=== PATIENT | female | born 1955 | race Caucasian/White ===

== ENCOUNTER 2023-03-30 09:53 | Day surgery (SDC) | payer BC, SELFPAY ==
[2023-03-30] VITALS (26 sets, daily range): BP systolic 110–154; BP diastolic 53–85; PULSE 55–72; RESP 14–23; TEMP 35.7–37.2; O2SAT 93–100; BMI 32.4
[2023-03-30] MEDS: LACTATED RINGERS 1000 ML 1,000 ML 100 ML IV (09:45)
[2023-03-30] MEDS: CELECOXIB 200 MG CAPSULE PO ×2 (10:00→21:15)
[2023-03-30] MEDS: OXYCODONE (CR) 10 MG TAB.ER.12H PO (10:05)
[2023-03-30] MEDS: ACETAMINOPHEN 500 MG TABLET 1000 MG PO ×2 (10:05→17:48)
--- NOTE | 2023-03-30 11:03 | CRLHL7_ITS ---
For Patients: As a result of the Cures Act, medical imaging exams and procedure reports are released immediately into your electronic medical record. You may view this report before your referring provider. If you have questions, please contact your health care provider. Indication: Postop Technique: Two views left knee Findings/Impression: Hardware from a left total knee arthroplasty is in satisfactory position. Bone alignment is normal. No sign of acute fracture. Postop changes are within normal limits. Dictated by Timoteo Mark MD @ 03/30/2023 3:57:08 PM (Electronically Signed)
--- NOTE | 2023-03-30 11:19 | SUR.PREOP ---
TIME?OUT:?1130 PT/RN/MDA?VERIFICATION?OF?SURGICAL?SITE,?PROCEDURE,?AND?CONSENT OBTAINED?PRIOR?TO?INVASIVE?PROCEDURE.
[2023-03-30] MEDS: fentaNYL 100 MCG/2 ML inj IVP (12:05)
[2023-03-30] MEDS: MIDAZOLAM HCL 1 MG/ML inj IVP (12:05)
--- NOTE | 2023-03-30 12:17 | W.PM.NB ---
Nerve Block Nerve Block Time Seen by Provider: 12:13 Date Seen: 03/30/23 Type of block requested by surgeon for post-operative analgesia: adductor canal Side: left Time out performed: Yes Verification of patient name: Yes Verification of date of : Yes Site marking: site marked Name of person performing procedure: Martinez Continuous monitoring Was continuous monitoring of O2 sat, B/P, lunchroom monitor, recorded every 15 minutes?: Yes Procedure Checklist: sterile prep, needles and gloves Ultrasound guided. Images saved: Yes Medications given in 5ml increments after negative aspiration: Ropivicaine %: 0.5 mL: 20 Needle gauge: 20 Decadron (mg): 10 Precedex (mcg): 25 Patient tolerated procedure well: Yes Additional comments: Needle noted adjacent to nerve Block Charges Block Charge (with Pro Fee): Femoral Nerve Use of Ultrasound Machine for Block: Yes- US Guidance/pain block
--- NOTE | 2023-03-30 12:18 | P.NB_ITS ---
Nerve Block Nerve Block Time Seen by Provider: 12:13 Date Seen: 03/30/23 Type of block requested by surgeon for post-operative analgesia: geniculars Side: left Time out performed: Yes Verification of patient name: Yes Verification of date of : Yes Site marking: site marked Name of person performing procedure: Martinez Continuous monitoring Was continuous monitoring of O2 sat, B/P, groundwater monitoring technician, recorded every 15 minutes?: Yes Procedure Checklist: sterile prep, needles and gloves Medications given in 5ml increments after negative aspiration: Ropivicaine %: 0.5 mL: 9 Needle gauge: 25 Patient tolerated procedure well: Yes Block Charges Block Charge (with Pro Fee): Genicular Nerve Block Use of Ultrasound Machine for Block: No
--- NOTE | 2023-03-30 12:18 | W.ANESCHARGE ---
Anesthesia Charges Start Date/Time Anesthesia Start Date: 03/30/23 Anesthesia Start Time: 12:32 Stop Date/Time Anesthesia Stop Date: 03/30/23 Anesthesia Stop Time: 15:13
[2023-03-30] MEDS: CEFAZOLIN 2 GM in 0.9 % SODIUM CHLORIDE Mini-bag 100 ML IVPB ×2 (12:50→18:28)
[2023-03-30] MEDS: TRANEXAMIC ACID 100 MG/ML INJ 1000 MG IV (12:50)
--- NOTE | 2023-03-30 14:14 | P.ORPRC_ITS ---
Procedure Note Date of procedure: 03/30/23 Procedure: PREOPERATIVE DIAGNOSIS: 1. Left knee osteoarthritis, primary, severe POSTOPERATIVE DIAGNOSIS: 1. Left knee osteoarthritis, primary, severe PROCEDURE: 1. Left total knee arthroplasty SURGEON: Adama Boyer MD. HOME IMPROVEMENT CONTRACTOR: Quentin Tapia PA-C - Of note, a skilled educational/development assistant was critical for this case to aid in patient positioning, tissue retraction, limb manipulation/positioning, and closure. ANESTHESIA: Spinal anesthetic EBL: 50ml IMPLANTS: DePuy J&J all cemented TKA - Attune PS femur size 7, size 6 tibia, 5 poly spacer, 35 mm patella TOURNIQUET: 90 min at 300 torr COMPLICATIONS: None evident INDICATIONS: The patient is a pleasant 67-year-old female who has experienced severe left knee pain and difficulty bearing weight. Workup included x-rays which revealed severe osteoarthrosis in the knee. Given the deformity, the dysfunction, and the pain, as well as the failure of nonoperative management, recommendation was made for surgery. FINDINGS: Full-thickness cartilage loss broadly through the medial and patellofemoral compartments. To a lesser degree lateral compartment. Moderate effusion upon entering the joint. Multiple osteophytes diffusely throughout the knee. DESCRIPTION OF PROCEDURE: Following a thorough discussion of risks, benefits, and alternatives consent was obtained and the left knee was marked. The patient was brought to the operating room and placed supine on the operating table. Induction of anesthesia was undertaken. 2 g IV Ancef and 1 g tranexamic acid was administered within 1 hr of incision preoperatively. Proper time-out was performed identifying proper patient, site, procedure. The operative extremity was prepped and draped in the appropriate sterile fashion using ChloraPrep after the patient was positioned supine with all bony prominences well padded. A longitudinal, anterior, midline skin incision was made starting approximately 3cm proximal to the superior pole of the patella and advanced distal to the tibial tubercle. A median parapatellar arthrotomy was created. A medial subperiosteal sleeve was created with knife, kelley elevator and curved osteotome. The retropatellar fatpad was resected and the synovium in the suprapatellar pouch excised to visualize the anterior femoral cortex. Femoral preparation was performed via an intramedullary guide. Step drill allowed access into the femoral canal. The distal cutting guide was placed with 5? of valgus and 11 mm cut on the distal femur due to a mild flexion contracture. Femur was sized using a posterior referencing guide in 3? of external rotation. This found have a best fit with the sizing noted above. The 4 in 1 cutting block was then placed, and the distal femur shaped accordingly. The box cut was then created and the trial implant inserted to confirm appropriate fit. We turned our attention to the proximal tibia. Extramedullary guide was utilized for cutting with the goal of being 90 degree cut from the mechanical axis of the tibia in the varus/valgus plane utilizing tibial crest as the primary alignment. Initially a 2 mm resection was performed from the medial tibial plateau. An additional 4 mm to require resection. Ultimately, balancing was achieved in both flexion and extension in both varus and valgus. The knee was able to achieve full extension as well comfortably. The patella was initially measured and found have a thickness of 22 mm. It was resected back to approximately 14.5 mm. It was sized to be a best fit with as noted above. This was drilled, trial placed. All trials were placed and found to have an excellent stability and balance. At this stage, trial implants were removed, the knee was thoroughly irrigated with normal saline, and the cement was mixed. After irrigation, the knee was thoroughly dried, and cement placed, with the real tibial and femoral implants placed along with the patella. Trial poly spacer was placed and confirmed to have excellent range of motion and full extension, and the real poly spacer opened and inserted. All extra cement was removed, and a 3 min Betadine soak performed. Finally, a final irrigation round with normal saline was performed. Closure performed with 0 PDS and #0 Stratafix for the quad tendon/retinaculum. 2-0 Vicryl/Stratafix for the subcutaneous and 4-0 Monocryl for subcuticular closure. Dressings were applied and the patient was awoken from anesthesia after the tourniquet deflated and transferred the PACU in stable condition. A skilled educational/development assistant was critical for this case to aid in patient positioning, tissue retraction, bone exposure, limb manipulation/positioning, patient safety, and closure. PLAN: 1. Weight bear as tolerated operative extremity. 2. 23 hr perioperative antibiotics. 3. Ice. 4. PT/OT consults for ambulation assistance/mobility education. 5. Social work consult for discharge planning. 6. DVT prophylaxis with at SCDs, Freddy Hose, and aspirin twice daily.
--- NOTE | 2023-03-30 15:18 | W.ANESCHARGE ---
Anesthesia Charges Start Date/Time Anesthesia Start Date: 03/30/23 Anesthesia Start Time: 12:32 Stop Date/Time Anesthesia Stop Date: 03/30/23 Anesthesia Stop Time: 15:13
--- NOTE | 2023-03-30 16:04 | SUR.PHASEI ---
patient met discharge criteria per anesthesia
--- NOTE | 2023-03-30 16:43 | P.IMCN_ITS ---
Date of Consult Patient: Javier Patient Consult date: 03/30/23 Primary Care Provider: Gustavo Mota MD Consult Narrative Reason for consult: Medical management of comorbidities Narrative: Shona Henriquez is a 67 year old female who presented to the hospital today for an elective L TKA. There were no surgical or anesthetic complications noted during procedure. Patient's H&P reviewed, PCP is Dr. Mota. Past medical history significant for: Osteoarthritis History of blood clots: No, nonsmoker Postoperative plan: Home, sister will help her Review of Systems Status of ROS: Reports: 10 or more systems reviewed and unremarkable except as noted in History and below PFSH PFS Medical History (Updated 03/25/23 @ 08:46 by Verónica Hernández, RN) Nuclear senile cataract of both eyes ?H25.13 - Age-related nuclear cataract, bilateral (ICD-10) AMD (age related macular degeneration) ?H35.30 - Unspecified macular degeneration (ICD-10) Surgical History (Updated 03/30/23 @ 16:45 by Lynn Portillo MD) History of left knee replacement ?Z96.652 - Presence of left artificial knee joint (ICD-10) Hx of vaginal hysterectomy ?Z90.710 - Acquired absence of both cervix and uterus (ICD-10) H/O bilateral breast reduction surgery (2019) ?Z98.890 - Other specified postprocedural states (ICD-10) Family History (Updated 03/17/23 @ 08:35 by Katie Ely, RACHANA) Family/Other Osteoarthritis Mother Lung cancer History of total right knee replacement History of total left knee replacement (TKR) Myocardial infarction Father Myocardial infarction CHF (congestive heart failure) Sister History of total left knee replacement (TKR) Supraventricular tachycardia Social History (Updated 03/30/23 @ 16:44 by Lynn Portillo MD) Narrative: Patient lives independently in [place]. 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 She is a nonsmoker. Smoking Status: Never smoker Do you use any of these nicotine containing products: None Second hand tobacco smoke exposure: No How often do you have a drink containing alcohol: monthly or less Alcohol type: wine How many standard drinks containing alcohol do you have on a typical day: 1 or 2 AUDIT-C Alcohol total score: 1 Non-prescribed substance use: denies use Caffeine: Yes (2 cups/day) Meds Home Medications and Allergies Home Medications Medication Instructions Recorded Confirmed Type vitamins A,C,N-thny-ppvzkd 4,296 1 cap PO DAILY 03/30/23 03/30/23 History mcg-226 mg-90 mg capsule (ICaps AREDS) Allergies Allergy/AdvReac Type Severity Reaction Status Date / Time No Known Drug Allergies Allergy Verified 03/30/23 10:55 Exam Narrative: Exam Narrative: GEN: Alert and answering questions appropriately HEENT: EOMIs bilaterally, no scleral icterus CV: RRR, No concerning murmurs, rubs, or gallops R: LCTA bilaterally without concerning wheezing, rales, or rhonchi Ext: Freddy hose bilaterally Skin: No concerning skin lesions or rashes on exposed skin Neuro: Nonfocal Psych: Appropriate Const: Vital Signs, click to edit/add: Vital Signs - 24 hr 03/30/23 10:25 03/30/23 12:05 03/30/23 12:10 Temperature 98.9 F Pulse Rate 64 68 64 Respiratory Rate 16 16 16 Blood Pressure 153/73 H 154/79 H 143/67 H Pulse Oximetry 96 96 98 Oxygen Delivery Me thod Room Air Nasal Cannula Nasal Cannula Oxygen Flow Rate 3 3 03/30/23 12:15 03/30/23 12:20 03/30/23 15:10 Temperature 97.2 F L Pulse Rate 60 65 64 Respiratory Rate 14 16 15 Blood Pressure 140/74 H 129/57 L 119/60 Pulse Oximetry 99 99 98 Oxygen Delivery Me thod Nasal Cannula Nasal Cannula Room Air Oxygen Flow Rate 3 3 03/30/23 15:15 03/30/23 15:20 03/30/23 15:25 Temperature 97.2 F L 97.2 F L 97.2 F L Pulse Rate 60 60 59 L Respiratory Rate 22 19 16 Blood Pressure 113/56 L 119/62 122/65 Pulse Oximetry 96 98 97 Oxygen Delivery Me thod Room Air Room Air Room Air Oxygen Flow Rate 03/30/23 15:30 03/30/23 15:35 03/30/23 15:40 Temperature 97.2 F L 97.2 F L 97.2 F L Pulse Rate 60 57 L 59 L Respiratory Rate 15 14 20 Blood Pressure 117/68 127/63 124/66 Pulse Oximetry 99 99 97 Oxygen Delivery Me thod Room Air Room Air Room Air Oxygen Flow Rate 03/30/23 15:45 03/30/23 15:50 Temperature 97.2 F L 97.1 F L Pulse Rate 57 L 57 L Respiratory Rate 23 16 Blood Pressure 130/66 125/62 Pulse Oximetry 99 97 Oxygen Delivery Me thod Room Air Room Air Oxygen Flow Rate Assessment and Plan Assessment and plan (1) History of left knee replacement: Problem comment: - 03/30/23Merlin Status: Acute Plan - pain management and prophylaxis per Orthopedic surgery team - anticipate routine postoperative course
--- NOTE | 2023-03-30 18:08 | PC.NURSE ---
t alert and oriented when arriving to floor at 1600. Pt had no complaints of pain. Pt able to move toes. Pt wanted to attempt using bathroom after incontinent episode. Pt was to numb but was able to stand with two assist, gait belt and walker but unable to sustain weight. Pt tolerating regular diet.?
[2023-03-30] MEDS: SENNOSIDES 1 TAB TABLET 2 TAB PO (21:15)
[2023-03-30] MEDS: OXYCODONE 5 MG TABLET PO (21:16)
[2023-03-30] MEDS: ASPIRIN 81 MG TABLET EC PO (21:16)
[2023-03-31] MEDS: ACETAMINOPHEN 500 MG TABLET 1000 MG PO ×2 (00:05→06:06)
[2023-03-31] MEDS: OXYCODONE 5 MG TABLET PO ×4 (00:32→10:25)
[2023-03-31] MEDS: CEFAZOLIN 2 GM in 0.9 % SODIUM CHLORIDE Mini-bag 100 ML IVPB (03:02)
[2023-03-31 03:05] VITALS: BP 111/57; PULSE 62; RESP 16; TEMP 36.6; O2SAT 94
[2023-03-31 06:38] LABS: Basophils Percent Auto 0.1 % (0.0-3.0); Hematocrit 29.9 % (33.0-51.0); Immature Granulocytes Pct Auto 0.2 %; Lymphocytes Percent Auto 6.5 % (20-44); Mean Corpuscular HGB Conc 33 gm/dL (32-36); Mean Corpuscular Hemoglobin 29 pg (26-34); Mean Corpuscular Volume 87 fL (80-100); Monocytes Percent Auto 4.7 % (0.0-11.0); Neutrophils Percent Auto 88.5 % (42.0-72.0); Platelet Count* 265 K/uL (140-440); Red Blood Count 3.43 m/uL (4.00-5.20); Slide Review Reflex No
[2023-03-31 06:57] LABS: Potassium* 4.5 mmol/L (3.6-5.1); Sodium* 137 mmol/L (135-149)
[2023-03-31 07:00] VITALS: BP 121/56; PULSE 60; RESP 16; TEMP 36.3; O2SAT 98
[2023-03-31 07:00] LABS: Blood Urea Nitrogen* 17 mg/dL (7-30); Creatinine* 0.6 mg/dL (0.5-1.5); Est. Creatinine Clearance* 49.12; Estimated Glomerular Filt Rate 98 ml/min
--- NOTE | 2023-03-31 07:18 | PC.NURSE ---
Pt alert and oriented x3, pleasant and cooperative.?Afebrile. Pt reports 4/10 pain in left knee, pain managed with scheduled and PRN medications. Pt denies chest pain, SOB, and N/V. Pt is up SBA with walker gait belt, tolerating a regular diet, and voiding. Pt slept intermittently throughout night, night uneventful.?
--- NOTE | 2023-03-31 07:59 | PM.ORPN ---
Subjective Subjective Date Seen: 03/31/23 Principal diagnosis: Status postop day 1 left total knee arthroplasty Interval history: Patient reports doing well. No acute events over night. Pain minimal, and managed with scheduled and PRN medications, ice. DVT prophylaxis: 81 mg aspirin by mouth twice daily, bilateral knee high Freddy stockings, SCDs, walking. Denies fevers, chills, aches, N/V, CP, SOB/HADDAD, or lightheadedness. She is very please thus far with her care here at the hospital. She looks forward to therapy and overall recovery. Ortho Exam Narrative Exam Narrative: -Patient appears comfortable; no apparent acute distress -Alert and oriented times 3 -Operative knee mildly swollen; soft tissues supple; no ecchymosis; no erythematous streaking Warmth appropriate -Surgical dressing clean, dry, intact; no drainage -Bilateral calfs soft; no significant swelling, edema, tenderness, erythema, discoloration, warmth, or palpable cords -2+ DP/PT pulses, intact dermatomes and myotomes distally (5/5 strength) Const Vital Signs, click to edit/add: Vital Signs - 24 hr 03/30/23 10:25 03/30/23 12:05 03/30/23 12:10 Temperature 98.9 F Pulse Rate 64 68 64 Pulse Rate [Left Pulse Oximeter] Respiratory Rate 16 16 16 Blood Pressure 153/73 H 154/79 H 143/67 H Blood Pressure [Right Arm] Pulse Oximetry 96 96 98 Oxygen Delivery Method Room Air Nasal Cannula Nasal Cannula Oxygen Flow Rate 3 3 03/30/23 12:15 03/30/23 12:20 03/30/23 15:10 Temperature 97.2 F L Pulse Rate 60 65 64 Pulse Rate [Left Pulse Oximeter] Respiratory Rate 14 16 15 Blood Pressure 140/74 H 129/57 L 119/60 Blood Pressure [Right Arm] Pulse Oximetry 99 99 98 Oxygen Delivery Method Nasal Cannula Nasal Cannula Room Air Oxygen Flow Rate 3 3 03/30/23 15:15 03/30/23 15:20 03/30/23 15:25 Temperature 97.2 F L 97.2 F L 97.2 F L Pulse Rate 60 60 59 L Pulse Rate [Left Pulse Oximeter] Respiratory Rate 22 19 16 Blood Pressure 113/56 L 119/62 122/65 Blood Pressure [Right Arm] Pulse Oximetry 96 98 97 Oxygen Delivery Method Room Air Room Air Room Air Oxygen Flow Rate 03/30/23 15:30 03/30/23 15:35 03/30/23 15:40 Temperature 97.2 F L 97.2 F L 97.2 F L Pulse Rate 60 57 L 59 L Pulse Rate [Left Pulse Oximeter] Respiratory Rate 15 14 20 Blood Pressure 117/68 127/63 124/66 Blood Pressure [Right Arm] Pulse Oximetry 99 99 97 Oxygen Delivery Method Room Air Room Air Room Air Oxygen Flow Rate 03/30/23 15:45 03/30/23 15:50 03/30/23 16:00 Temperature 97.2 F L 97.1 F L 96.3 F L Pulse Rate 57 L 57 L 58 L Pulse Rate [Left Pulse Oximeter] Respiratory Rate 23 16 14 Blood Pressure 130/66 125/62 Blood Pressure [Right Arm] 125/61 Pulse Oximetry 99 97 Oxygen Delivery Method Room Air Room Air Room Air Oxygen Flow Rate 03/30/23 16:00 03/30/23 16:15 03/30/23 16:30 Temperature 96.3 F L 96.5 F L 96.8 F L Pulse Rate Pulse Rate [Left Pulse Oximeter] 58 L 59 L 55 L Respiratory Rate 14 16 16 Blood Pressure Blood Pressure [Right Arm] 125/61 117/62 111/53 L Pulse Oximetry 98 99 100 Oxygen Delivery Method Room Air Room Air Room Air Oxygen Flow Rate 03/30/23 16:45 03/30/23 17:00 03/30/23 17:30 Temperature 96.9 F L 97.1 F L 97.0 F L Pulse Rate Pulse Rate [Left Pulse Oximeter] 60 66 67 Respiratory Rate 16 16 16 Blood Pressure Blood Pressure [Right Arm] 111/59 L 125/63 115/57 L Pulse Oximetry 100 97 98 Oxygen Delivery Method Room Air Room Air Room Air Oxygen Flow Rate 03/30/23 18:00 03/30/23 18:00 03/30/23 19:00 Temperature 97.1 F L 97.1 F L 97.1 F L Pulse Rate Pulse Rate [Left Pulse Oximeter] 69 69 69 Respiratory Rate 16 16 16 Blood Pressure Blood Pressure [Right Arm] 113/74 113/74 130/65 Pulse Oximetry 98 98 98 Oxygen Delivery Method Room Air Room Air Room Air Oxygen Flow Rate 3 03/30/23 19:00 03/30/23 20:00 03/30/23 21:00 Temperature 97.1 F L 97.4 F L 97.3 F L Pulse Rate Pulse Rate [Left Pulse Oximeter] 69 58 L 64 Respiratory Rate 16 18 18 Blood Pressure Blood Pressure [Right Arm] 130/65 110/63 114/53 L Pulse Oximetry 98 97 98 Oxygen Delivery Method Room Air Room Air Room Air Oxygen Flow Rate 03/30/23 22:00 03/30/23 23:35 03/30/23 23:35 Temperature 97.5 F L Pulse Rate Pulse Rate [Left Pulse Oximeter] 72 64 Respiratory Rate 16 Blood Pressure Blood Pressure [Right Arm] 131/85 Pulse Oximetry 99 93 Oxygen Delivery Method Room Air Oxygen Flow Rate 03/30/23 23:35 03/31/23 03:05 03/31/23 07:00 Temperature 98.0 F 97.9 F 97.4 F L Pulse Rate Pulse Rate [Left Pulse Oximeter] 64 62 60 Respiratory Rate 18 16 16 Blood Pressure Blood Pressure [Right Arm] 118/59 L 111/57 L 121/56 L Pulse Oximetry 93 94 98 Oxygen Delivery Method Room Air Room Air Room Air Oxygen Flow Rate 3 03/31/23 07:00 Temperature Pulse Rate Pulse Rate [Left Pulse Oximeter] 60 Respiratory Rate 16 Blood Pressure Blood Pressure [Right Arm] Pulse Oximetry Oxygen Delivery Method Oxygen Flow Rate Assessment and Plan Assessment and plan (1) History of left knee replacement: Problem details: - 03/30/23Merlin Status: Acute Plan - Complete 23 hour perioperative antibiotics. - PT/OT consult for education and assistance. - Social work consult for discharge planning - Prescribed analgesics as needed - DVT prophylaxis: 81 mg aspirin by mouth twice daily, bilateral knee high Freddy Hose stockings and SCDs - Anticipation is for discharge to home with sister 03/31/2023 if the patient remains medically stable, pain is controlled, and they are safe with mobilization.
[2023-03-31] MEDS: ASPIRIN 81 MG TABLET EC PO (09:14)
[2023-03-31] MEDS: SENNOSIDES 1 TAB TABLET 2 TAB PO (09:14)
[2023-03-31] MEDS: CELECOXIB 200 MG CAPSULE PO (09:16)
--- NOTE | 2023-03-31 10:42 | PC.SOCIAL ---
Pt. is moving well and will discharge home today with family support. No discharge resources needed.
--- NOTE | 2023-03-31 11:03 | PC.NURSE ---
[id number] Shift Summary? 89 M.A. 67 L TKA Hx: Nuclear senile cataract of both eyes, AMD (age related macular degeneration), hysterectomy, bilat breast reduction? Pt did very well this shift with PT/OT and DCed around 1039. Advanced diet, no nausea/vomiting. Awake, alert and oriented. Pain at a 4-6/10, given oxy 5mg after therapies. Utilizing Kryo cuff. Some mild numbness/tingling to L?leg. IV removed. On room air, sats stable.?Reviewed DC instructions, dressing care, medication, and IS. Scipts sent to pharmacy on file. Belongings reviewed. DCed home with sister via wheelchair and walker (from home)?without any questions. ?
== END 2023-03-31 10:39 | disposition home or self-care (01) ==
LOC: OR 09:54 → MEDSURG 03-31 07:30
PROVIDERS: PCP Family Medicine; Visit Provider Orthopaedic Surgery Sports Medicine
PROC: (CPT 27447; principal; 2023-03-30 11:45)
DX: M17.12 Unilateral primary osteoarthritis, left knee (principal); G89.18 Other acute postprocedural pain
CPT/HCPCS: 27447; 01402; 36415; 64447; 64454; 73560; 76942; 82565; 84132; 84295; 84520; 85025; 97110; 97116; 97161; 97165; 97535; A9270; C1776; J0690; J1100; J2250; J2405; J2704; J2795; J3010; J7120

== ENCOUNTER 2023-06-03 13:00 | Outpatient (RCR) | payer BC, SELFPAY ==
--- NOTE | 2023-04-03 13:59 | PT.OPE ---
PT [place] [facility] PT [facility] Out[facility] Eval Start: 04/01/23 13:02 Freq: Status: Active Protocol: Document 04/01/23 13:02 HN (Rec: 04/01/23 16:49 HN [id number]) E-signed By Vibha Mistry DPT Physical Therapy Outpatient Evaluation Insurance Information Insurance Name [employer] Insurance Information/Comments [place] [address] Medical Diagnosis M17.12 Unilateral primary knee replacement, left Z96.652 presence of left artificial joint Treating Diagnosis Left knee pain M25.662 Left knee stiffness M25.675 Referring MD Adama Boyer MD Subjective Subjective Patient is a 66 year old female with L TKA on 03/30/23. Patient reports previous 5 year chronic history of L knee pain with deficits in range of motion and strength. Patient elected to undergo left TKA due to this. Patient reports no complications, spent 1 night in the hospital. Pain characteristics: painful , diffusely in entire left knee Aggravating factors: movement, activity Easing Factors: acetaminophen, ibuprofen, and oxy, icing and elevations Prior level of function: chronic 5 year history of knee pain, no difficulty with transfers, curb stair navigation, no AD use before surgery Current limitations: transfers, ambulation, stair and curb navigation, participation in ADLs and IADLs Imaging: no imaging completed PMH: denies any relevant medical history Social History: 2 story home, currently staying on main level, rented hospital bed, 1/ 2 bath on main floor. Patient lives alone, sister Zainab and younger sister check in every day. 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 Patient 6-8 weeks off of work. Patient enjoys walking, working in garden, and caring for 3 horses. 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 Preferred Name [facility] Precautions Treatment Precautions/Contraindications L TKA 03/30/23 Weight Bearing Status Full Weight Bearing Objective Other/Pertinent Objective Range of motion (degrees): Hip range of motion is grossly intact bilaterally Knee flexion: 76 L/ 125R Knee extension:L/ lacking 3 degrees extension R Manual muscle testing: Hip flexion: 3/5 L , 5/5 R Hip abduction (seated) : 4/5 L , 5/5 R Hip adduction (seated): 4/5 L , 5/5 R Knee extension: 3/5 L , 5/5 R Knee flexion: 3/5 L , 5/5 R Ankle DF : 4/5 L , 5/5 R Ankle PF: 4/5 L , 5/5 R 5 time sit to stand: deferred Palpation: tenderness with palpation, diffusely, patient demosntrates increased edema and warmth consistent with post surgical status Functional Test Performed & Score JR AMANDA. Score: 20 / 28, Interval Score: 36.931 / 100 Assessment Assessment/Impression Patient is a 67 year old with left knee pain after left total knee arthroplasty on 10/10. Patient demonstrates impaired left knee range of motion, strength, increased pain and edema consistent with post surgical status. The impairments impact the patients transfers, ambulation stair and curb navigation and participation in ADLs and IADLs, Patient will benefit from skilled physical therapy to address the impairments and activity limitations listed above. Prognostic factors include few comorbidities and patients age. Primary Functional Limitations transfers, ambulation stair and curb navigation and participation in ADLs and IADLs, Plan of Care Rehabilitation Potential Good Rehabilitation Potential Comments Patient age, few comorbidities affecting plan of care. Physical Therapy Goals Short term goals 5 weeks (05/13) 1. Patient will demonstrate 5/ 5 strength in L LE to improve tolerance with ambulation and stair navigation. 2. Patient will report <5/10 pain at worst in order to demonstrate decreased pain and disability related to symptoms 3. Patient will tolerate standing >15 minutes with no increase in pain order to complete ADLs. 4. Patient will demonstrate independence with home exercise program in order to improve strength and knee range of motion historical interpreter goals (12 weeks, 06/24) 1. Patient will demonstrate knee range of motion of 0-120 in left knee in order to normalize gait mechanics and to perform ADLs and IADLs. 2. Patient will tolerate walking >30 minutes with no increase in pain, no AD, and reciprocal gait pattern order to complete ADLs and IADLs. 3. Patient will demonstrate KOOS JR score of 75% or greater in order to demonstrate decreased pain and disability related to knee 4. Patient will complete 5 time sit to clipper machine 12 seconds or less with no use of hands in order to demonstrate decreased risk for falls 5. Patient will ascend/descend 1 flight of stairs reciprocally in order to navigate home safely. Coordination/Communication With Referral Source Treatment Plan/Direct Interventions Electrical Stimulation,Gait Training,Ice/Cold/ Vasopneumatic,Joint Mobilization,Manual Therapy, Neuromuscular Re-ed,Self-Care/ Home Management,Therapeutic Activities,Therapeutic Exercises Frequency/Duration 2/week for up to 12 weeks Patient Will Be Discharged From Therapy Completion of LTG(s),Skills Plateau,Independent w/HEP Evaluation Billing Untimed Code Treatment Minutes 15 Complexity Low Certification Information Physician Comment/Change : Physician NPI Number #
== END 2023-07-02 14:32 | disposition home or self-care (01) ==
PROVIDERS: PCP Family Medicine; Visit Provider Orthopaedic Surgery Sports Medicine
DX: M17.12 Unilateral primary osteoarthritis, left knee (principal); Z96.652 Presence of left artificial knee joint; Z51.89 Encounter for other specified aftercare
CPT/HCPCS: 97016; 97110; 97140; 97161; 97530